=== PATIENT | female | born 1935 | race Caucasian/White ===

== ENCOUNTER 2018-01-28 02:13 | Inpatient (IN) | payer OTHER ==
[~2018-01-28] VITALS: Ht 157.5 cm; Wt 86.2 kg
[2018-01-28 02:24] VITALS: Ht 157.5 cm; Wt 86.2 kg
[2018-01-28] MEDS ORDERED: NOVOLIN R100 U/ML (04:32)
[2018-01-28] MEDS ORDERED: JANUVIA100 M1 (04:33)
[2018-01-28 06:05] LABS: MAGNESIUM 2.3 mg/dL (1.8-2.4)
[2018-01-28 06:13] VITALS: BP 156/67
[2018-01-28 06:15] LABS: FREE T4 1.44 ng/dL (0.76-1.46); FREE THYROXINE INDEX 2.6 ug/dL (1.4-4.5); T4(THYROXINE) 6.7 ug/dL (4.7-13.3)
[2018-01-28 06:17] LABS: CHOLESTEROL/HDL RATIO 5.3
[2018-01-28 07:29] LABS: T3 TOTAL 0.56 ng/mL
[2018-01-28 08:05] VITALS: BP 139/68
[2018-01-28 12:51] VITALS: BP 129/59
[2018-01-28 17:04] VITALS: BP 131/49
[2018-01-28 20:30] VITALS: BP 149/65
[2018-01-29 05:00] VITALS: BP 149/67
[2018-01-29 06:26] LABS: PLATELET COUNT 222 x10^3mcL (130-400); RED CELL DISTRIBUTION WIDTH 13.4 % (11.5-14.5)
[2018-01-29 07:00] LABS: CALCIUM 8.6 mg/dL (8.5-10.1); CARBON DIOXIDE 25.5 mmol/L (21-32); CHLORIDE SERUM 97 mmol/L (98-107); CREATININE SERUM 2.2 mg/dL (0.6-1.0); GLUCOSE SERUM 235 mg/dL (74-106); MAGNESIUM 2.2 mg/dL (1.8-2.4); PHOSPHOROUS 2.5 mg/dL (2.5-4.9); POTASSIUM SERUM 3.8 mmol/L (3.5-5.1); SODIUM SERUM 133 mmol/L (136-145)
[2018-01-29 08:00] VITALS: BP 141/73
[2018-01-29 09:43] VITALS: BP 140/56
[2018-01-29 12:55] LABS: ATYPICAL LYMPH 1 %; BAND NEUTROPHIL 1 % (0-10); BASOPHIL 0 % (0-2); MONOCYTE 8 % (0-7); SEGMENTED NEUTROPHILS 86 % (37-75)
[2018-01-29 12:56] LABS: PLATELET MORPHOLOGY PLATELETS DECREASED; rbc morphology (normal/abnorm) NORMAL (NORMAL)
[2018-01-29 13:26] VITALS: BP 148/87
[2018-01-29] MEDS ORDERED: NOR10 PO (16:38)
[2018-01-29] MEDS ORDERED: ASPIR 8181 MG PO (16:39)
[2018-01-29] MEDS ORDERED: ZYRTEC10 MG PO (16:41)
[2018-01-29] MEDS ORDERED: FUROSEMIDE20 MG PO (16:42)
[2018-01-29] MEDS ORDERED: GABAPENTIN100 M2 PO (16:42)
[2018-01-29] MEDS ORDERED: LORATADINE10 M3 PO (16:44)
[2018-01-29] MEDS ORDERED: METOPROLOL TART25 M1 PO (16:45)
[2018-01-29] MEDS ORDERED: GOOD SENSE OMEP20 MG PO (16:46)
[2018-01-29] MEDS ORDERED: RENA-VITE RX1 TAB PO (16:47)
[2018-01-29] MEDS ORDERED: SIMVASTATIN20 M1 PO (16:48)
[2018-01-29] MEDS ORDERED: VITAMIN D32000 I2 PO (16:49)
[2018-01-29] MEDS ORDERED: LEVEMIR FLEX100 U/M1 SQ (16:51)
[2018-01-29 17:21] VITALS: BP 167/61
[2018-01-29 21:06] VITALS: BP 172/68
[2018-01-30] VITALS (7 sets, daily range): BP systolic 138–179; BP diastolic 57–73
[2018-01-30 06:26] LABS: PLATELET COUNT 319 x10^3mcL (130-400); RED CELL DISTRIBUTION WIDTH 13.9 % (11.5-14.5)
[2018-01-30 06:28] LABS: CALCIUM 8.4 mg/dL (8.5-10.1); CARBON DIOXIDE 25.8 mmol/L (21-32); CHLORIDE SERUM 99 mmol/L (98-107); CREATININE SERUM 1.8 mg/dL (0.6-1.0); GLUCOSE SERUM 212 mg/dL (74-106); POTASSIUM SERUM 3.9 mmol/L (3.5-5.1); SODIUM SERUM 136 mmol/L (136-145)
[2018-01-30 10:04] LABS: BAND NEUTROPHIL 9 % (0-10); BASOPHIL 0 % (0-2); MONOCYTE 6 % (0-7); SEGMENTED NEUTROPHILS 70 % (37-75)
[2018-01-30 10:06] LABS: PLATELET MORPHOLOGY LARGE PLATELET SEEN; rbc morphology (normal/abnorm) NORMAL (NORMAL)
[2018-01-31 05:36] VITALS: BP 140/65
[2018-01-31 06:46] LABS: CALCIUM 8.6 mg/dL (8.5-10.1); CARBON DIOXIDE 26.7 mmol/L (21-32); CHLORIDE SERUM 97 mmol/L (98-107); CREATININE SERUM 1.6 mg/dL (0.6-1.0); GLUCOSE SERUM 189 mg/dL (74-106); POTASSIUM SERUM 3.7 mmol/L (3.5-5.1); SODIUM SERUM 133 mmol/L (136-145)
[2018-01-31 09:11] VITALS: BP 129/63
[2018-01-31 09:31] LABS: PLATELET COUNT 355 x10^3mcL (130-400); RED CELL DISTRIBUTION WIDTH 14.2 % (11.5-14.5)
[2018-01-31 12:39] VITALS: BP 146/59
[2018-01-31 13:19] LABS: ATYPICAL LYMPH 1 %; BAND NEUTROPHIL 2 % (0-10); BASOPHIL 0 % (0-2); MONOCYTE 3 % (0-7); SEGMENTED NEUTROPHILS 83 % (37-75)
[2018-01-31 13:22] LABS: PLATELET MORPHOLOGY PLATELETS NORMAL; rbc morphology (normal/abnorm) ABNORMAL (NORMAL)
[2018-01-31 15:07] VITALS: BP 139/61
[2018-01-31 20:56] VITALS: BP 139/57
[2018-02-01 04:58] VITALS: BP 146/65
[2018-02-01 06:50] LABS: CARBON DIOXIDE 24.7 mmol/L (21-32); CHLORIDE SERUM 97 mmol/L (98-107); CREATININE SERUM 1.6 mg/dL (0.6-1.0); GLUCOSE SERUM 173 mg/dL (74-106); POTASSIUM SERUM 4.3 mmol/L (3.5-5.1); SODIUM SERUM 133 mmol/L (136-145)
[2018-02-01 07:23] LABS: BASOPHIL % 0.4 % (0-2); RED CELL DISTRIBUTION WIDTH 14.1 % (11.5-14.5)
[2018-02-01 07:30] LABS: PLATELET COUNT 404 x10^3mcL (130-400)
[2018-02-01 08:17] VITALS: BP 146/56
[2018-02-01 11:03] VITALS: BP 143/66
[2018-02-01 17:15] VITALS: BP 142/60
[2018-02-01 21:00] VITALS: BP 132/59
[2018-02-02 05:44] VITALS: BP 128/46; BP 139/56
[2018-02-02 06:00] LABS: CALCIUM 8.4 mg/dL (8.5-10.1); CARBON DIOXIDE 27.5 mmol/L (21-32); CHLORIDE SERUM 103 mmol/L (98-107); CREATININE SERUM 1.5 mg/dL (0.6-1.0); GLUCOSE SERUM 210 mg/dL (74-106); POTASSIUM SERUM 4.6 mmol/L (3.5-5.1); SODIUM SERUM 138 mmol/L (136-145)
[2018-02-02 06:10] LABS: BASOPHIL % 0.2 % (0-2); RED CELL DISTRIBUTION WIDTH 13.9 % (11.5-14.5)
[2018-02-02 06:23] LABS: PLATELET COUNT 532 x10^3mcL (130-400)
[2018-02-02 07:31] VITALS: BP 146/58
[2018-02-02] MEDS ORDERED: KEFLEX500 M1 PO (09:16)
[2018-02-02 09:24] VITALS: BP 146/58
== END 2018-02-02 12:45 | disposition home or self-care (01) | DRG 871 ==
LOC: ED 02:13 → DU 04:51
PROVIDERS: Family Medicine; Internal Medicine
DX: A41.51 Sepsis due to Escherichia coli [E. coli] (principal); G93.41 Metabolic encephalopathy; E43 Unspecified severe protein-calorie malnutrition; N17.0 Acute kidney failure with tubular necrosis; N12 Tubulo-interstitial nephritis, not specified as acute or chronic; E87.1 Hypo-osmolality and hyponatremia; N39.0 Urinary tract infection, site not specified; E11.65 Type 2 diabetes mellitus with hyperglycemia; I12.9 Hypertensive chronic kidney disease with stage 1 through stage 4 chronic kidney disease, or unspecified chronic kidney disease; E11.22 Type 2 diabetes mellitus with diabetic chronic kidney disease; N18.9 Chronic kidney disease, unspecified; E78.5 Hyperlipidemia, unspecified; H91.93 Unspecified hearing loss, bilateral; Z79.4 Long term (current) use of insulin; Z68.34 Body mass index [BMI] 34.0-34.9, adult
CPT/HCPCS: 82962; 83880; 84439; 87804; 97110-GP; 97116-GP; 97530-GP; J0696; J1815; J1956; J3490; J7030; J7050; Q0092